=== PATIENT | male | born 2000 | race Caucasian/White ===

== ENCOUNTER 2024-01-30 10:13 | Inpatient (IN) | payer OTHER, SELFPAY ==
[2024-01-30] VITALS (10 sets, daily range): BP systolic 121–155; BP diastolic 70–93; BMI 24.8; BMI 25.1
[2024-01-30 04:03] LABS: % Basophils 0.6 % (0-2); % Eosinophils 0.8 % (0-6); % Immature Granulocytes 0.2 % (0-0.5); % Lymphocytes 20.6 % (20.5-51.1); % Neutrophils 73.8 % (42.2-75.2); Absolute Basophils 0.1 10^3/uL (0-0.2); Absolute Eosinophils 0.1 10^3/uL (0-0.7); Absolute Lymphocytes 2.3 10^3/uL (1.2-3.4); Absolute Monocytes 0.4 10^3/uL (0.1-0.6); Hematocrit 45.1 % (39.0-52.0); Hemoglobin 16.1 g/dL (13.0-18.0); Mean Corp Hgb Conc. 35.7 g/dL (33.0-37.0); Mean Corpuscular Hgb 29.3 pg (27.0-31.0); Mean Platelet Volume 9.4 fL (7.4-10.4); Nucleated Red Blood Cells % 0 % (-); Platelet Count 380 10^3/uL (130-400); White Blood Cell Count 10.9 10^3/uL (4.8-10.8)
[2024-01-30] MEDS: ZOFRAN 4 MG IV (04:14)
[2024-01-30 04:27] LABS: ALT (SGPT) 75 U/L (0-50); AST (SGOT) 85 U/L (17-59); Albumin 5.4 g/dl (3.5-5.0); Alkaline Phosphatase 100 U/L (38-126); Blood Urea Nitrogen 11 mg/dl (9-20); Calcium 10.4 mg/dl (8.4-10.2); Carbon Dioxide 21 mmol/L (22-30); Chloride 105 mmol/L (98-107); Glucose 112 mg/dl (70-99); Lipase 88 U/L (23-300); Potassium 3.5 mmol/L (3.5-5.1); Sodium 141 mmol/L (135-145); Total Protein 8.8 g/dl (6.3-8.2); eGFR > 60.00
[2024-01-30] MEDS: NSS 1000 IV ×2 (05:40→06:26)
[2024-01-30] MEDS: DILAUDID 1 MG IV ×3 (05:41→20:21)
[2024-01-30] MEDS: ATIVAN 1 MG IV ×5 (05:45→23:22)
--- NOTE | 2024-01-30 07:07 | ED TECH ---
US Tech called this assistant community manager and said that the pt was in too much pain to continue US. Pt taken back to room. Nurse and provider alerted.
--- NOTE | 2024-01-30 07:14 | ED.GENMED ---
History of Present Illness
General
Chief Complaint: Abdominal Symptoms
Source: patient, family (mother) and previous hospital records (Hospitalization September 2023 for very similar complaint. Previous ED visit for similar complaint January 2023.)
Exam Limitations: none
Time Seen by Provider: 01/30/24 05:01
Nursing documentation reviewed up to this point in time: agreed with
Travel History
Have you had any contact with someone who has COVID-19?: No
Do you have any symptoms of coronavirus? Fever > 100 degrees, chills, cough, shortness of breath, sore throat, loss of taste or smell, muscle aches, or headache?: No
History of Present Illness
History of Present Illness:
This is a 23-year-old male who has history of chronic abdominal pain, chronic nausea and vomiting with multiple, repeated/extensive GI evaluations by various gastroenterologists throughout the area requiring previous hospitalizations due to
exacerbation of his chronic abdominal pain and intractable nausea and vomiting most recently September 2023.
He has had chronic abdominal pain after a snowboarding accident with abdominal wall muscle tear 2018.
Maintained on methadone 10 mg 4 times daily as well as alprazolam 1 mg 4 times daily. Also maintained on marijuana and there has been concern for opioid withdrawal versus cannabis hyperemesis syndrome versus gastroparesis, cyclic vomiting syndrome.
He does admit to near daily vomiting but generally tolerable with twice daily Zofran 8 mg.
Nausea, vomiting and generalized abdominal pain worsened this evening and is now intolerable.
He denies diarrhea nor constipation. Denies fever but admits to intermittent chills and diaphoresis which are common entities with exacerbation of his pain and vomiting. He often times vomits flecks of blood but denies jacob hematemesis nor
hematochezia.
Very similar presentation September 2023 where he was hospitalized for several days, symptoms improved with IV fluids, pain medication.
According to patient and mother, he has had no recurrent severe episodes such as this since September.
Past History
Past History
ED Past Medical History: Other (Kidney stones, chronic abdominal pain, chronic N/V)
ED Past Surgical History: Other (ENT)
Social History
Tobacco: Non-smoker
Alcohol: Occasional
Drug: Marijuana
Personal: Single
Living: with family
Employment: Not employed
Family History
Family History: Other (Noncontributory)
Phy Exam
Physical Exam
Physical Exam:
GENERAL: 23-year-old male appears his stated age, awake and alert, appears in moderate distress, somewhat tremulous, diaphoretic, intermittently spitting saliva into an emesis basin with intermittent brief retching. Mother is at bedside.
EYE: anicteric
NECK: Supple, nontender, no meningismus, no significant adenopathy.
ENT: oral mucosa is moist. No rhinorrhea.
CARDIAC: Regular rate and rhythm. no murmur.
LUNGS: Clear breath sounds bilaterally, no acute respiratory distress, no wheezes/rales/rhonchi
ABDOMEN: Soft, nondistended, moderate generalized tenderness to palpation without rebound or guarding nor rigidity, no cvat. normoactive BS.
NEUROLOGICAL: Alert and oriented x3, no focal neuro deficits.
SKIN: Warm and mildly diaphoretic, minimally pale in color, skin intact. No rash.
MUSCULOSKELETAL: No C/C/E. peripheral pulses are full and equal b/l. No palpable tenderness.
PSYCH: Moderately anxious, tremulous.
Course
Orders/Labs/Results
Orders:
Orders
01/30/24 03:58
Complete Blood Count/With Diff Urgent
Comprehensive Metabolic Panel Urgent
Lipase Urgent
01/30/24 04:06
Urine Drug Abuse Screen Urgent
01/30/24 04:07
Urinalysis Reflex To Culture Urgent
01/30/24 04:11
Ondansetron Injectable [Zofran] 4 mg .ROUTE .STK-MED ONE
01/30/24 04:12
Ondansetron Injectable [Zofran] 4 mg IV NOW STA
01/30/24 05:14
0.9% Sodium Chloride 1000 ml [Nss] 1,000 ml IV BOLUS
HYDROmorphone [Dilaudid] 1 mg IV NOW STA
01/30/24 05:17
Lorazepam [Ativan] 1 mg IV NOW STA
US Abdomen Complete/Upper Urgent
Comment:
Reason For Exam: abd pain, N/V, elevated LFT's
01/30/24 06:20
0.9% Sodium Chloride 1000 ml [Nss] 1,000 ml IV BOLUS
Abnormal Lab Results
01/30/24
03:58
WBC 10.9 H 10^3/uL
(4.8-10.8)
Absolute Neuts (auto) 8.0 H 10^3/uL
(1.4-6.5)
Carbon Dioxide 21 L mmol/L
(22-30)
Glucose 112 H mg/dl
(70-99)
Calcium 10.4 H mg/dl
(8.4-10.2)
Total Bilirubin 2.0 H mg/dl
(0.2-1.3)
AST 85 H U/L
(17-59)
ALT 75 H U/L
(0-50)
Total Protein 8.8 H g/dl
(6.3-8.2)
Albumin 5.4 H g/dl
(3.5-5.0)
01/30/24 03:58
01/30/24 03:58
Vital Signs
Initial and Last Documented VS:
Initial Vital Signs
Pulse Ox
99
01/30/24 03:36
Last Documented Vital Signs
Pulse Resp BP Pulse Ox
54 16 142/92 100
01/30/24 06:30 01/30/24 06:30 01/30/24 06:00 01/30/24 06:30
MDM/Problems Addressed
Differential Diagnosis Includes:
Patient with history of chronic abdominal pain, chronic nausea presents with exacerbation of chronic pain and exacerbation of nausea and vomiting.
Maintained on methadone, Ativan and he is quite anxious, diaphoretic, concerning for opioid versus benzodiazepine withdrawal symptomatology.
Other consideration is cannabis hyperemesis syndrome, cyclic vomiting.
No prior abdominal surgeries and multiple previous imaging has been unremarkable.
He is noted to have mildly elevated LFTs which is a new finding thus will check abdominal ultrasound assess for potential cholecystitis however most of his pain is mid to lower abdomen�chronic in nature.
Will continue IV fluids and give an IV dose of Dilaudid and Ativan for potential withdrawal issues.
Chronic conditions affecting care: Psychiatric illness and Other (Chronic abdominal pain-narcotic dependent)
Acute Exacerbation and/or Progression of Chronic Illness: Psychiatric illness and Other (Exacerbation of chronic abdominal pain)
*Pulse Oximetry
Patient hypoxic: no
*Critical Care Note
Total Time (30-74mins, 75-104mins- exclusive of procedures): Not Applicable
Update Note
Update Note:
01/30/2024 0721 AM
Patient had moderate improvement in pain and nausea after an IV dose of Ativan and Dilaudid along with IV fluids.
Labs are remarkable for mildly elevated creatinine of 1.3, mildly elevated LFTs with AST of 85, ALT of 75 which are new compared to previous. Mildly elevated bilirubin of 2.0 with previous sporadic bilirubin elevations noted in the past. Mildly
elevated LFTs however is a new finding compared to previous. CBC is unremarkable.
Due to elevated LFTs concern for biliary colic thus will check abdominal ultrasound.
Unfortunately, patient has returned from ultrasound prior to completion of study due to return of pain and nausea.
Will remedicate for pain and nausea and plan to complete ultrasound study.
Due to persistent pain, intractable nausea and vomiting patient will require acute hospitalization for pain control, continued IV fluids and continue antiemetics.
ED Attending Note
-
Portions of this chart may have been created with voice recognition software.� Occasional wrong word or��sound alike� substitutions may have occurred due to the inherent limitations of voice recognition software.
Discharge Plan
Departure
Patient Disposition: Admit
Date of Disposition: 01/30/24
Time of Disposition: 07:21
Admit to: Med/Surg
Admit to doctor: Maynor
Presentation/result/management discussed w/ accepting MD/DO: Hospitalist
Discharge Problem:
Intractable abdominal pain, Intractable vomiting, LFT elevation, exacerbation of chronic pain syndrome
Prescriptions:
No Action
alprazolam 1 mg Tablet
1 mg PO QID
Rx Instructions:
09/15/2023, patient filled this medication on 08/29/2023 for 120 tablets according to PDMP.
tizanidine 4 mg Tablet
4 mg PO BID PRN (Reason: muscle spasm)
methadone 10 mg Tablet
10 mg PO QID
Rx Instructions:
09/15/2023, patient filled this medication on 08/29/2023 for 120 tablets according to PDMP.
ondansetron 8 mg Tablet,Disintegrating
8 mg PO BID
pantoprazole 40 mg Tablet,Delayed Release (Dr/Ec)
40 mg PO DAILY
lubiprostone 24 mcg Capsule
24 mcg PO BID
Patient Comments:
09/15/2023, patient states that they take BID with meals.
Belsomra 20 mg Tablet
20 mg PO HS
Rx Instructions:
09/15/2023, patient filled this medication on 09/04/2023 for 30 tablets according to PDMP.
Referrals:
Emerson Gramajo MD [Family Provider] -
Interventions
Interventions:
*Risk Screen - Suicide Last Done: 01/30/24 03:36
*General Assessment Last Done: 01/30/24 03:36
*Neglect/Abuse Screening Last Done: 01/30/24 03:36
ED- Fall Risk Assessment Last Done: 01/30/24 03:48
*ED COVID-19 Vaccine History Last Done: 01/30/24 03:48
OZ-Oxdplh-Yjbnpcugnm Assessment Last Done: 01/30/24 03:48
[2024-01-30] MEDS: DILAUDID 0.5 MG IV (07:23)
--- NOTE | 2024-01-30 08:34 | HPS.HSE ---
Addendum entered and electronically signed by Dasia Mcguire MD 01/30/24 09:12:
allergy to promethazine; mother states he has tolerated compazine in past
Original Note:
Family Physician
-
Family Physician: Emerson Gramajo
Chief Complaint
-
intractable nausea and vomiting
History of Present Illness
Mr. Jose Alejandro is a 23 yo man with h chronic abdominal pain and nausea status post extensive GI evaluations, opioid dependence on methadone and Alprazolam presents to the ER with exacerbation of pain and frequent vomiting.
Chronic abdominal pain began after a snowboarding accident with abdominal wall muscle tear 2018. Patient has had extensive work-up here and at [place], [facility], [facility]. s/p EGD, colo, flex sig, capsule endoscopies, CT, motility work-up. He
has received lidocaine and steroid injection for possible nerve pain in abdominal wall without improvement. He was on chronic narcotics, weaned off but had AE from gabapentin and then placed on methadone. Marijuana stopped for 8 months without
relief of symptoms so he resumed.
At current baseline he vomits every day but nausea relieved with zofran and pain controlled with Methadone. Last night his mom states he was rolling on ground and trying to crack his back. He then had significant exacerbation of pain, vomiting.
He reports diarrhea at home, not here.
Medical History
Past Medical History
Past Medical History: Reports Other
Additional Past Medical History:
Kidney stones
C. difficile
Past Surgical History: Reports Other
Additional Past Surgical History:
Back surgery
Social History
Tobacco: Vaping (Legal marijuana)
Alcohol: None
Drug: None
Personal: Single
Living: With Family
Employment: Employed (Self-employed)
Family History
Family History: Not pertinent
Allergies / Home Medications
Allergies reflects when Allergies were last updated in [employer].
Home Medications with original date entered in [employer]
Allergy/Medication List:
Allergies
Allergy/AdvReac Type Severity Reaction Status Date / Time
amoxicillin Allergy anxiety Verified 02/01/23 11:58
like
wanting to
jump out
of skin
promethazine [From Phenergan] Allergy anxiety, Verified 02/01/23 11:58
like
wanting to
jump out
of skin
Home Medications
alprazolam 1 mg tablet 1 mg PO QID Mental Health/Anxiety 09/15/23
lubiprostone 24 mcg capsule 24 mcg PO BID Constipation 09/15/23
methadone 10 mg tablet 10 mg PO QID chronic pain 09/15/23
ondansetron 8 mg disintegrating tablet 8 mg PO BID nausea 09/15/23
pantoprazole 40 mg tablet,delayed release 40 mg PO DAILY Gastrointestinal Issue 09/15/23
suvorexant 20 mg tablet (Belsomra) 20 mg PO HS insomnia 09/15/23
tizanidine 4 mg tablet 4 mg PO BID PRN muscle spasm 09/15/23
Review of Systems
-
History Source: Patient
A 12 point ROS was completed and negative except as noted: Yes
Physical Exam
Vital Signs
Vital Signs
Pulse Resp BP Pulse Ox
54 16 142/92 100
01/30/24 06:30 01/30/24 06:30 01/30/24 06:00 01/30/24 06:30
Physical Exam
General: Other (in position, appears uncomfortable )
HEENT: PERRLA
Respiratory: Clear; No Wheezes
Cardiac: S1/S2 and Regular Rhythm
GI: Other (tender mid-abdomen, no rebound or guarding )
Skin: Warm and Dry; No Rash
Neuro: AO x 3
Psych: Other (flat affect )
Laboratory Results
-
01/30/24 03:58
01/30/24 03:58
Laboratory Results
Total Bilirubin 2.0 mg/dl (0.2-1.3) H 01/30/24 03:58
AST 85 U/L (17-59) H 01/30/24 03:58
ALT 75 U/L (0-50) H 01/30/24 03:58
Alkaline Phosphatase 100 U/L (38-126) 01/30/24 03:58
Lipase 88 U/L (23-300) 01/30/24 03:58
Data Reviewed
-
Diagnostic Radiology: Report Reviewed by me
Lab Data: Labs Reviewed by me
Impression/Plan
-
Mr. Jose Alejandro is a 23 yo man with h chronic abdominal pain and nausea status post extensive GI evaluations, opioid dependence on methadone and Alprazolam presents to the ER with exacerbation of pain and frequent vomiting.
Triage VS: P 54, RR 156, BP 142/92, SpO2 100%
Labs: WBC 10.9, Hg 16.1, PLT 380, Na 141, K+ 3.5, BUn 11, Cr 1.3, Glucose 112, Ca 10.4, T. bili 2.0, AST 85, ALT 75
ABDOMEN US
IMPRESSION:
Limited exam in the midline due to overlying bowel gas.
No acute process identified.
MAR IV dilaudid, IVF, zofran
Chronic Abdominal Pain
Acute Exacerbation Abdominal pain
Nausea/vomiting
Diarrhea reported at home
Opiate Dependence
-patient has had extensive work-up here and at [place], [facility], [facility]. s/p EGD, colo, flex sig, capsule endoscopies, CT, motility work-up. He has received lidocaine and steroid injection for possible nerve pain in abdominal wall without
improvement. He was on chronic narcotics, weaned off but had AE from gabapentin and then placed on methadone. Marijuana stopped for 8 months without relief of symptoms so he resumed
-admit to tele
-s/p zofran, IV dilaudid, IVF in ER, remains uncomfortable
-IV Compazine now
-D5 LR @ 100
-IV zofran 1st line; compazine 2nd line for nausea
-IV dilaudid 1mg q 4H PRN
-GI consult
-add on Mag, replete K as it is 3.5 and patient with minimal PO intake; GI loss
-F/U UA and UTox
-with diarrhea reported at home will add on stool culture, C. Diff, norovirus
Anxiety, Alprazolam dependence
-with vomiting will change to IV Ativan instead of XanaX
Transaminitis
-likely 2/2 GI upset, US without acute abnormality
-will trend
GERD
-change Protonix to IV
DVT PPx lovenox subQ
FULL CODE
--- NOTE | 2024-01-30 08:48 | EDRN ---
Pt requested ice chips which were okayed by Dr. Mcguire. Pt c/o nausea. Dr. Mcguire in room w/pt at this time. Pt states he has been having diarrhea and it has been bloody so Dr. Mcguire wishes a stool specimen.
[2024-01-30] MEDS: COMPAZINE 10 MG IV (10:45)
--- NOTE | 2024-01-30 11:03 | EDRN ---
Nikita 10:40 this RN clarified order for 40 meq KCl rider over 4 hours as potassium is 3.5. Dr. Mcguire said w/ pt's low normal potassium and being NPO she wanted the potassium infused.
[2024-01-30] MEDS: KCL 270 MEQ IV (11:08)
--- NOTE | 2024-01-30 11:10 | EDRN ---
Pt states abd pain is 8+/10 at this time and nausea at 100% upon arrival is now at 80%. Compazine 10 mg IVPB just completed and potassium just started to infuse at this time 40 meq in 270 of NSS at 67.5 mL per hour via IV pump.
[2024-01-30] MEDS: D5LR 1000 IV ×2 (12:00→22:06)
--- NOTE | 2024-01-30 12:22 | W.PN.UPDATE ---
Update Note
Progress Note Update
QTc prolonged. will change anti-nausea meds to Tigan PRN
[2024-01-30] MEDS: PROTONIX IV 40 MG IV (12:28)
[2024-01-30] MEDS: FLUSH (NSS) 2 FLUSH IV ×2 (12:35→18:08)
--- NOTE | 2024-01-30 13:14 | CON.GI ---
Consultation
-
Date/Time Consultation Requested: 01/30/2024
Date/Time Consultation Performed: 01/30/2024
Requesting Provider: hospitalist
Performing Provider: Xu COLE
Reason for Consultation: Chronic abdominal pain/nausea/vomiting
Medical History
Chief Complaint / HPI
Chief Complaint: Abdominal pain/nausea/vomiting
History of Present Illness:
23-year-old male with history of chronic abdominal pain started after snowboarding accident in 2019 who underwent extensive GI workup in tertiary centers [facility] including EGD/colonoscopy/capsule endoscopy/motility study currently
following up with pain management on methadone is here complaining of exacerbation of his abdominal pain with frequent nausea/vomiting. Prior to this excruciating pain mom stated that he was rolling on the ground and tried to crack his back. Was
seen by GI team multiple times in the past. last seen 09/2023. He is also seen pain management he sees [facility] pain management and has received lidocaine and a steroid injection for possible nerve pain in his abdominal wall without much
improvement of symptoms he was on chronic narcotics he was weaned off the narcotics in 2021 and was started on gabapentin he had side effects from the gabapentin so he then was put on methadone.� He also uses medical marijuana for nausea he says
because of the concern of possible cannabinoid hyperemesis he stopped marijuana for 8 months but did not have much improvement of symptoms. He was using lubiprostone 24 mcg twice daily for constipation given by cnc operator at [facility].
(Reported abdominal cramping with stimulant laxative or MiraLAX in the past)
Past Medical History
Past Medical History: Other (Kidney stones C. difficile)
Past Surgical History: Other (back surgery)
Social History
Tobacco: Vaping (Legal marijuana)
Alcohol: None
Drug: None
Living: With Family
Allergies / Home Medications
Allergy/AdvReac Type Severity Reaction Status Date / Time
amoxicillin Allergy anxiety Verified 02/01/23 11:58
like
wanting to
jump out
of skin
promethazine [From Phenergan] Allergy anxiety, Verified 02/01/23 11:58
like
wanting to
jump out
of skin
Medication Instructions Recorded
alprazolam 1 mg tablet 1 mg PO QID Mental Health/Anxiety 09/15/23
lubiprostone 24 mcg capsule 24 mcg PO BID Constipation 09/15/23
methadone 10 mg tablet 10 mg PO QID chronic pain 09/15/23
ondansetron 8 mg disintegrating 8 mg PO BID nausea 09/15/23
tablet
pantoprazole 40 mg tablet,delayed 40 mg PO DAILY Gastrointestinal 09/15/23
release Issue
suvorexant 20 mg tablet (Belsomra) 20 mg PO HS insomnia 09/15/23
tizanidine 4 mg tablet 4 mg PO BID PRN muscle spasm 09/15/23
Review of Systems
-
All other systems: A 12 pt ROS was Negative except as stated above in HPI
Vital Signs
Temp Pulse Resp BP Pulse Ox
98.5 F 56 16 147/93 100
01/30/24 11:50 01/30/24 11:50 01/30/24 11:50 01/30/24 11:50 01/30/24 11:50
Physical Exam
Exam
General: Well Developed
Respiratory: Clear
Cardiac: S1/S2
GI: Soft, Non Tender (Left lower quadrant tenderness) and Non Distended
Neuro: AO x 3
Results
WBC 10.9 10^3/uL (4.8-10.8) H 01/30/24 03:58
Hgb 16.1 g/dL (13.0-18.0) 01/30/24 03:58
Hct 45.1 % (39.0-52.0) 01/30/24 03:58
MCV 82.0 fL (80.0-94.0) 01/30/24 03:58
Plt Count 380 10^3/uL (130-400) 01/30/24 03:58
Absolute Neuts (auto) 8.0 10^3/uL (1.4-6.5) H 01/30/24 03:58
Sodium 141 mmol/L (135-145) 01/30/24 03:58
Potassium 3.5 mmol/L (3.5-5.1) 01/30/24 03:58
Chloride 105 mmol/L (98-107) 01/30/24 03:58
Carbon Dioxide 21 mmol/L (22-30) L 01/30/24 03:58
BUN 11 mg/dl (9-20) 01/30/24 03:58
Creatinine 1.3 mg/dL (0.7-1.3) 01/30/24 03:58
Calcium 10.4 mg/dl (8.4-10.2) H 01/30/24 03:58
Total Bilirubin 2.0 mg/dl (0.2-1.3) H 01/30/24 03:58
AST 85 U/L (17-59) H 01/30/24 03:58
ALT 75 U/L (0-50) H 01/30/24 03:58
Alkaline Phosphatase 100 U/L (38-126) 01/30/24 03:58
Lipase 88 U/L (23-300) 01/30/24 03:58
Diagnostic Image Results:
Prior GI Procedures:
EGD:� 06/08/20 Dr. Arriola
Impression:� � � � � - Normal esophagus.
�� � � � � � � � � � - Gastric stenosis was found at the pylorus. Dilated.
�� � � � � � � � � � - Normal examined duodenum.
�� � � � � � � � � � - No specimens collected.
Colonoscopy:� January [address] [facility] with Dr. [facility] neg per patient's mom
colonoscopy 07/19/20 Dr. Garnett
Impression:� � � � � � - Congested, erythematous and granular mucosa in the
�� � � � � � � � � � � distal rectum. Biopsied.
�� � � � � � � � � � � - Nodular ileal mucosa - worse at the ICV and terminal
�� � � � � � � � � � � ileum. Biopsied.
�� � � � � � � � � � � Sent studies to rule out TB, amyloidosis, eosinophils,
�� � � � � � � � � � � IBD.
�� � � � � � � � � � � - The more proximal area examined was normal. Biopsied.
�� � � � � � � � � � � - Biopsies were taken with a cold forceps from the
�� � � � � � � � � � � entire colon for evaluation of microscopic colitis.
�� � � � � � � � � � � - The colon examination was otherwise endoscopically
�� � � � � � � � � � � normal.
PATHOLOGY : Was negative for microscopic colitis and ileal biopsies were negative for Crohn's no evidence of granulomas or inflammation seen. also negative for Amyloid.
Assessment / Plan
-
23-year-old male with history of chronic abdominal pain started after snowboarding accident in 2019 who underwent extensive GI workup in tertiary centers [place], [facility] including EGD/colonoscopy/capsule endoscopy/motility study currently
following up with pain management on methadone is here complaining of exacerbation of his abdominal pain with frequent nausea/vomiting. Prior to this excruciating pain mom stated that he was rolling on the ground and tried to crack his back.
-- Chronic abdominal pain with nausea and vomiting -extensive GI workup in the past. Likely multifactorial -likely neuropathic versus referred pain versus chronic opioid use etc
-- Opioid dependence
-- Back pain/multiple disc herniation
-- Elevated liver test.Ultrasound abdomen 01/30/2024�no acute process identified
plan
Multiple hospital admissions in the past and extensive GI workup at tertiary center with no clear etiology identified . Recommend symptomatic management with IV hydration, antiemetics and pain management as per medical team. Okay to start on clear
liquid diet and advance diet as tolerated if nausea settles with antiemetics. At this point unfortunately nothing more to add from GI standpoint other than supportive care.
Trend LFT
If diarrhea persist will recommend stool studies for infection
Will advise follow-up with GI as outpatient at [facility]
Total Time Spent with Patient (in minutes): 55
-
-
Thank you for consultation and allowing me to participate in the patient's care. Please call the bonding machine setter GI physician during the after hours with any questions or concerns.
[2024-01-30] MEDS: LOVENOX 40 MG SC (18:09)
[2024-01-30] MEDS: NSS (PRESERVATIVE FREE) 0.5 ML IV ×2 (18:19→23:22)
[2024-01-30] MEDS: AMITIZA 24 MCG PO (20:09)
[2024-01-30] MEDS: TIGAN 200 MG IM (20:19)
[2024-01-30 22:30] LABS: Urine Albumin Negative (Neg - Trace); Urine Bilirubin Negative (Negative); Urine Character Clear (Clear); Urine Color Yellow; Urine Glucose Negative (Negative); Urine Ketone Negative (Negative); Urine Leukocyte Negative (Negative); Urine Nitrite Negative (Negative); Urine Occult Blood Negative (Negative); Urine Specific Gravity 1.005 (<1.030); Urine Urobilinogen Negative (Neg - 1+)
[2024-01-31 03:18] VITALS: BP 118/61
[2024-01-31] MEDS: ATIVAN 1 MG IV ×4 (05:29→23:21)
[2024-01-31] MEDS: NSS (PRESERVATIVE FREE) 0.5 ML IV ×4 (05:30→23:21)
[2024-01-31] MEDS: DILAUDID 1 MG IV ×4 (05:49→20:11)
[2024-01-31] MEDS: TIGAN 200 MG IM ×2 (05:59→18:02)
[2024-01-31 07:40] VITALS: BP 132/97
[2024-01-31 07:45] LABS: % Basophils 0.3 % (0-2); % Eosinophils 0.5 % (0-6); % Immature Granulocytes 0.2 % (0-0.5); % Lymphocytes 36.1 % (20.5-51.1); % Monocytes 6.9 % (1.7-9.3); Absolute Lymphocytes 2.3 10^3/uL (1.2-3.4); Absolute Monocytes 0.4 10^3/uL (0.1-0.6); Absolute Neutrophils 3.6 10^3/uL (1.4-6.5); Hematocrit 36.9 % (39.0-52.0); Mean Corp Hgb Conc. 34.7 g/dL (33.0-37.0); Mean Corpuscular Hgb 29.4 pg (27.0-31.0); Mean Corpuscular Volume 84.6 fL (80.0-94.0); Mean Platelet Volume 9.7 fL (7.4-10.4); Nucleated Red Blood Cells % 0 % (-); Platelet Count 258 10^3/uL (130-400); Red Blood Cell Count 4.36 10^6/uL (4.70-6.10); Red Cell Dist. Width 13.2 % (11.5-14.5); White Blood Cell Count 6.4 10^3/uL (4.8-10.8)
--- NOTE | 2024-01-31 08:02 | W.PN.HOSP.TC ---
Today's Communication/Plan
-
advance to clears
symptom management with IV meds today and IM Tigan
repeat EKG tomorrow to monitor QTc
Assessment / Plan
Assessment / Plan
Mr. Jose Alejandro is a 23 yo man with h chronic abdominal pain and nausea status post extensive GI evaluations, opioid dependence on methadone and Alprazolam presents to the ER with exacerbation of pain and frequent vomiting.�
ABDOMEN US
IMPRESSION:
Limited exam in the midline due to overlying bowel gas.
No acute process identified.
Chronic Abdominal Pain
Acute Exacerbation Abdominal pain
Nausea/vomiting
Diarrhea reported at home
Opiate Dependence
-patient has had extensive work-up here and at [place], [facility], [facility].� s/p EGD, colo, flex sig, capsule endoscopies, CT, motility work-up.� He has received lidocaine and steroid injection for possible nerve pain in abdominal wall without
improvement.� He was on chronic narcotics, weaned off but had AE from gabapentin and then placed on methadone.� Nausea was OK off pain meds. Marijuana stopped for 8 months without relief of symptoms so he resumed
-F/U labs, likely OK for transfer to [facility] ]
-appreciate GI consult
-advance to clears today
-will continue IV med supportive care for today until eating regular diet
-IM Tigan given prolonged QTc (repeat EKG ordered for tomorrow AM to monitor QTc)
-IV dilaudid PRN
-with diarrhea reported at home will add on stool culture, C. Diff, norovirus
Anxiety, Alprazolam dependence
-with vomiting will change to IV Ativan instead of XanaX
discussion had with patient 01/30. He reports being frustrated with the need to be on these medications. He works with CBT and has been trying to adjust pain regimen for 4 years. He has appt with spine surgeon upcoming next month. After
extensive GI work up belief is that back pain and referred pain main etiology of symptoms. It seems the pain meds then result in nausea.
Transaminitis
-likely 2/2 GI upset, US without acute abnormality
-will trend
GERD
-change Protonix to IV
DVT PPx lovenox subQ
FULL CODE
Anticipated Discharge: 24 - 48 hours
Subjective/Interval History
-
Date of Service: January 31, 2024
feeling better
more conversant today
states he wants to get off meds
Objective Data
-
Labs:
Laboratory Results
01/31/24
07:23
WBC Pending
Hgb Pending
Hct Pending
Plt Count Pending
Sodium Pending
Potassium Pending
Chloride Pending
Carbon Dioxide Pending
BUN Pending
Creatinine Pending
Glucose Pending
Calcium Pending
Total Bilirubin Pending
AST Pending
ALT Pending
Alkaline Phosphatase Pending
Vital Signs:
Vital Signs
Temp Pulse Resp BP Pulse Ox
99.0 F 54 16 118/61 98
01/31/24 03:18 01/31/24 03:18 01/31/24 03:18 01/31/24 03:18 01/31/24 03:18
I&O
01/30/24 01/31/24 02/01/24
06:59 06:59 06:59
Intake Total 0 / 2120
Output Total 1425 / 1425
Balance 695 / 695
Review of Systems
-
History Source: Patient
All other systems: Reviewed and negative
Physical Exam
-
General: Other (mildly tremulous, anxious, awake and alert, conversant )
HEENT: PERRLA
Respiratory: Clear to Auscultation; Negative Wheezes
Cardiac: Regular Rhythm and S1/S2
GI: Other (mildly tender mid-epigastric region, no rebound or guarding )
Musculoskeletal: No Edema
Skin: Warm and Dry; Negative Rash
Neuro: AO x 3
Psych: Calm
Data Reviewed
-
Diagnostic Radiology: Report Reviewed by me
Labs: Labs Reviewed by me
[2024-01-31 08:18] LABS: Hemoglobin 12.8 g/dL (13.0-18.0)
[2024-01-31] MEDS: D5LR 1000 IV ×2 (08:21→18:02)
[2024-01-31] MEDS: AMITIZA 24 MCG PO ×2 (08:28→20:11)
[2024-01-31] MEDS: PROTONIX IV 40 MG IV (08:33)
[2024-01-31] MEDS: FLUSH (NSS) 2 FLUSH IV ×3 (08:35→12:26)
[2024-01-31] MEDS: NSS (PRESERVATIVE FREE) 10 ML IV (08:35)
[2024-01-31 08:36] LABS: ALT (SGPT) 63 U/L (0-50); AST (SGOT) 60 U/L (17-59); Albumin 4.1 g/dl (3.5-5.0); Alkaline Phosphatase 69 U/L (38-126); Blood Urea Nitrogen 3 mg/dl (9-20); Carbon Dioxide 23 mmol/L (22-30); Chloride 110 mmol/L (98-107); Estimated Creatinine Clearance > 125 ml/min; Glucose 101 mg/dl (70-99); Magnesium 1.6 mg/dl (1.6-2.3); Potassium 3.4 mmol/L (3.5-5.1); Sodium 140 mmol/L (135-145); Total Bilirubin 1.8 mg/dl (0.2-1.3); Total Protein 6.7 g/dl (6.3-8.2); eGFR > 60.00
[2024-01-31 10:07] LABS: Benzodiazepines Positive (Negative); Marijuana Positive (Negative); Methadone Positive (Negative); Opiates Positive (Negative)
[2024-01-31 10:08] LABS: Amphetamines Negative (Negative); Barbiturates Negative (Negative); Buprenorphine Negative (Negative); Cocaine Negative (Negative); Methamphetamines Negative (Negative); Phencyclidine Negative (Negative); Tricyclic Antidepressants Negative (Negative)
[2024-01-31 10:29] LABS: Fentanyl, Urine Negative (Negative)
[2024-01-31 11:06] LABS: Direct Bilirubin 0.2 mg/dl (0.0-0.4)
--- NOTE | 2024-01-31 11:34 | W.PN.GI.CBS2 ---
Today's Communication / Plan
-
Continue symptomatic management
Assessment / Plan
-
23-year-old male with history of chronic abdominal pain started after snowboarding accident in 2019 who underwent extensive GI workup in tertiary centers [place], [facility] including EGD/colonoscopy/capsule endoscopy/motility study currently
following up with pain management on methadone is here complaining of exacerbation of his abdominal pain with frequent nausea/vomiting. Prior to this excruciating pain mom stated that he was rolling on the ground and tried to crack his back.
-- Chronic abdominal pain with nausea and vomiting -extensive GI workup in the past. Likely multifactorial -likely neuropathic versus referred pain versus chronic opioid use etc
-- Opioid dependence
-- Back pain/multiple disc herniation
-- Elevated liver test.trending down. Direct bilirubin is normal .ultrasound abdomen 01/30/2024�no acute process identified
plan
Multiple hospital admissions in the past and extensive GI workup at tertiary center with no clear GI etiology identified . Recommend symptomatic management with IV hydration, antiemetics and pain management as per medical team. Okay to start on
clear liquid diet and advance diet as tolerated if nausea settles with antiemetics. At this point unfortunately nothing more to add from GI standpoint other than supportive care.
Pain management consultation can be beneficial
Trend LFT
If diarrhea persist will recommend stool studies for infection
Will advise follow-up with GI as outpatient at [facility]
Will sign off. Please call us back if any questions
Total Time Spent with Patient (in minutes): 35
Subjective
Subjective
Date of Service: January 31, 2024
Continues to have intermittent abdominal pain associated with nausea. [place] better earlier. Awaiting to try clear liquid today
Objective
Data Reviewed
Laboratory Data:
Laboratory Results
01/31/24 07:23
01/31/24 07:23
Laboratory Results
Magnesium 1.6 mg/dl (1.6-2.3) 01/31/24 07:23
Total Bilirubin 1.8 mg/dl (0.2-1.3) H 01/31/24 07:23
AST 60 U/L (17-59) H 01/31/24 07:23
ALT 63 U/L (0-50) H 01/31/24 07:23
Alkaline Phosphatase 69 U/L (38-126) 01/31/24 07:23
Lipase 88 U/L (23-300) 01/30/24 03:58
Vital Signs and I&O:
Vital Signs
Temp Pulse Resp BP Pulse Ox
99.1 F 69 16 132/97 99
01/31/24 07:40 01/31/24 07:40 01/31/24 07:40 01/31/24 07:40 01/31/24 07:40
I&O
01/30/24 01/31/24 02/01/24
06:59 06:59 06:59
Intake Total 2119 / 2119
Output Total 1425 / 1425
Balance 695 / 695
Physical Exam
Physical Exam
GI: Soft and Tender
[2024-01-31] MEDS: KCL 270 MEQ IV (12:01)
--- NOTE | 2024-01-31 12:41 | CM ---
Reviewed the chart notes and spoke with the patient at the bedside. The patient resides with his parents in a two story home. The patient reports no DME/VN/SNF in the past. The patient's pharmacy of choice is the [facility] Vladimir Kramer CM
continues to be available to patient/family and is monitoring medical plan for needs at discharge.
Plan: Discharge to home when medically stable. No needs anticipated.
--- NOTE | 2024-01-31 13:43 | PTCARENOTE ---
PT's family request a psych consult for their son. The family told me that he had been on meds before but it made him too drowsy and did not like being on them. He is undergoing cognitive behavioral therapy, not sure where. Also they stated years
ago he tried to take his life but he doesn't want anyone to know this even a psych doctor. The parenets fear that if the doctor starts talking about psych stuff he will refuse to see them. I recommended to talk about his lack of sleep and
difficulty. Pt possibly uses pain meds, anxiety meds to help with all of this. He tries to keep busy and did some day trading. Mother states he is very smart. Dad mentioned that he lies in bed alot. They don't know what to do for him and look
like they fear something will happen if he is not taken care of. Recommendations for a psych consult to discuss lack of sleep and get medication for that and get off off other meds. Pt does see a pain specialist too. Will cont to monitor pts pain
and support his emotions
[2024-01-31 15:25] VITALS: BP 143/90
[2024-01-31] MEDS: MAGNESIUM SULFATE 50 IV (16:31)
[2024-01-31] MEDS: LOVENOX 40 MG SC (17:52)
--- NOTE | 2024-01-31 19:25 | CON.MD ---
Consultation - Medical
-
Pt admitted for chronic nausea/vomiting/abdominal pain - has been seen at various facilities with no clear cause found. Psychiatry consulted due to parents raising concerns that he is depressed.
Pt admits to depressed mood but says this is in context of frustration with his current condition. Expresses frustration at feeling that he is often seen as 'a junkie' because of his being on opiates, also frustration with constant nausea/abdominal
pain and not having any clear answers. Was briefly tearful when talking about this. Denies depression outside of depressed mood relating to worsened quality of life, though on exploration he does describe struggling quite a bit. He denies SI, is
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
He is not open to taking any psychotropics at this time & ntes that he is currently in CBT which he has found quite helpful.
He does struggle with sleep due to nausea/abdominal pain however for this too, he was not open to trialing any different medications.
Discussed with pt that if he changes his mind and becomes more amenable to medication trials he can speak to us again (though he was quite clear that he wants to avoid psychotropics due to plans to return to piloting one day)
[2024-01-31 23:14] VITALS: BP 128/75
[2024-02-01] MEDS: TIGAN 200 MG IM ×2 (00:57→08:20)
[2024-02-01] MEDS: DILAUDID 1 MG IV ×4 (01:00→12:37)
[2024-02-01] MEDS: D5LR 1000 IV (04:36)
[2024-02-01] MEDS: ATIVAN 1 MG IV ×2 (05:31→11:28)
[2024-02-01] MEDS: NSS (PRESERVATIVE FREE) 0.5 ML IV ×2 (05:32→11:27)
[2024-02-01 06:43] LABS: Hematocrit 37.9 % (39.0-52.0); Hemoglobin 13.2 g/dL (13.0-18.0); Mean Corp Hgb Conc. 34.8 g/dL (33.0-37.0); Mean Corpuscular Hgb 29.7 pg (27.0-31.0); Mean Corpuscular Volume 85.4 fL (80.0-94.0); Mean Platelet Volume 9.8 fL (7.4-10.4); Platelet Count 257 10^3/uL (130-400); Red Blood Cell Count 4.44 10^6/uL (4.70-6.10); Red Cell Dist. Width 13.2 % (11.5-14.5); White Blood Cell Count 5.9 10^3/uL (4.8-10.8)
[2024-02-01 07:11] LABS: ALT (SGPT) 57 U/L (0-50); AST (SGOT) 49 U/L (17-59); Albumin 4.1 g/dl (3.5-5.0); Alkaline Phosphatase 66 U/L (38-126); Blood Urea Nitrogen < 2 mg/dl (9-20); Calcium 9.4 mg/dl (8.4-10.2); Carbon Dioxide 27 mmol/L (22-30); Chloride 103 mmol/L (98-107); Estimated Creatinine Clearance > 125 ml/min; Glucose 98 mg/dl (70-99); Magnesium 1.9 mg/dl (1.6-2.3); Potassium 3.5 mmol/L (3.5-5.1); Sodium 140 mmol/L (135-145); Total Bilirubin 1.3 mg/dl (0.2-1.3); Total Protein 6.7 g/dl (6.3-8.2); eGFR > 60.00
[2024-02-01 07:50] VITALS: BP 156/84
[2024-02-01] MEDS: PROTONIX IV 40 MG IV (08:19)
[2024-02-01] MEDS: NSS (PRESERVATIVE FREE) 10 ML IV (08:19)
[2024-02-01] MEDS: AMITIZA 24 MCG PO (08:19)
--- NOTE | 2024-02-01 11:28 | CM ---
Reviewed the chart notes. Patient is for discharge today to home with no additional needs being identified at this time. Patient's family will provide transportation home. CM continues to be available to patient/family and is monitoring medical
plan for needs at discharge.
Plan: Discharge to home today.
--- NOTE | 2024-02-01 12:55 | W.PN.HOSP.TC ---
Addendum entered and electronically signed by Sushant Lyles MD 02/01/24 17:01:
#GIL - most likely 2/2 to diarrhea/vomiting - resolved
#Hypokalemia
Addendum entered and electronically signed by Sushant Lyles MD 02/01/24 16:35:
[id number]
Original Note:
Today's Communication/Plan
-
change back to home meds
close Pain Management F/u in 1-2 weeks for potential and hopeful intrathecal pump
f/u gi, pcp, pain management outpatient
Assessment / Plan
Assessment / Plan
Mr. Jose Alejandro is a 23 yo man with h chronic abdominal pain and nausea status post extensive GI evaluations, opioid dependence on methadone and Alprazolam presents to the ER with exacerbation of pain and frequent vomiting.�
ABDOMEN US
IMPRESSION:
Limited exam in the midline due to overlying bowel gas.
No acute process identified.
Chronic Abdominal Pain
Acute Exacerbation Abdominal pain
Nausea/vomiting
Diarrhea reported at home
Opiate Dependence
-patient has had extensive work-up here and at [place], [facility], [facility].� s/p EGD, colo, flex sig, capsule endoscopies, CT, motility work-up.� He has received lidocaine and steroid injection for possible nerve pain in abdominal wall without
improvement.� He was on chronic narcotics, weaned off but had AE from gabapentin and then placed on methadone.� Nausea was OK off pain meds. Marijuana stopped for 8 months without relief of symptoms so he resumed
-F/U labs, likely OK for transfer to [facility] ]
-appreciate GI consult
-advanced to low residue diet; diarrhea resolved
-symptoms most likely related to chronic medication use; Spoke to Dr. Doherty today; Has not been seen with his mother for the last 1-2 years; After discussion- best path would be intrathecal pump to wean off other oral pain regimen. Educated
patient on slow taper of all medications as this most likely contributing factor in all symptoms.
-Can f/u with pain management in 1-2 weeks; F/u GI - Dr. [facility] at [facility]
Anxiety, Alprazolam dependence
XanaX
Transaminitis
ruq sono neg
-trending down, most likely 2/2 to vomiting
-f/u outpatient lfts, GI
GERD
-ppi
DVT PPx lovenox subQ
FULL CODE
More than 30 minutes spent in discharge including
Final examination of the patient
Summarizing hospital stay
Instructions for continuing care to all relevant caregivers
Preparation of discharge records, prescriptions, and referral forms
Total time spent (35 in minutes):
Anticipated Discharge: Today
Subjective/Interval History
-
Date of Service: February 01, 2024
had formed stool yesterday; tolerating diet; will dc - needs to go to Pain management outpatient
Objective Data
-
Labs:
Laboratory Results
02/01/24
06:11
WBC 5.9
Hgb 13.2
Hct 37.9 L
Plt Count 257
Sodium 140
Potassium 3.5
Chloride 103
Carbon Dioxide 27
BUN < 2 L
Creatinine 0.8
Glucose 98
Calcium 9.4
Total Bilirubin 1.3
AST 49
ALT 57 H
Alkaline Phosphatase 66
Vital Signs:
Vital Signs
Temp Pulse Resp BP Pulse Ox
98.5 F 67 20 156/84 99
02/01/24 07:50 02/01/24 07:50 02/01/24 07:50 02/01/24 07:50 02/01/24 11:41
I&O
01/31/24 02/01/24 02/02/24
06:59 06:59 06:59
Intake Total 0 / 2120 1520 / 1520
Output Total 1425 / 1425 1850 / 1850
Balance 695 / 695 -330 / -330
Review of Systems
-
History Source: Patient
All other systems: Reviewed and negative
Physical Exam
-
General: Other (mildly anxious, awake and alert, conversant )
HEENT: PERRLA
Respiratory: Clear to Auscultation; Negative Wheezes
Cardiac: Regular Rhythm and S1/S2
GI: Other (mildly tender mid-epigastric region, no rebound or guarding )
Musculoskeletal: No Edema
Skin: Warm and Dry; Negative Rash
Neuro: AO x 3
Psych: Calm
Data Reviewed
-
Ultrasound: Report Reviewed by me
Labs: Labs Reviewed by me
--- NOTE | 2024-02-01 13:01 | W.DS.TRANS ---
DC Summary - Bundle Wrapper
-
Discharge Instructions:
Discharge Diagnosis/Procedures
Chronic Abdominal Pain
Acute Exacerbation Abdominal pain
Nausea/vomiting
Diarrhea reported at home
Opiate Dependence
Diet Low Fiber
Activity As tolerated
Blood Work lfts in 1 week with pcp
Instructions:
Stand-Alone Forms:
Changes to Home Medications: No
Discharge Medications:
DC Medications w/original date entered in [facility]
alprazolam 1 mg tablet 1 mg PO QID Mental Health/Anxiety 09/15/23
lubiprostone 24 mcg capsule 24 mcg PO BID Constipation 09/15/23
methadone 10 mg tablet 10 mg PO QID chronic pain 09/15/23
ondansetron 8 mg disintegrating tablet 8 mg PO BID nausea 09/15/23
pantoprazole 40 mg tablet,delayed release 40 mg PO DAILY Gastrointestinal Issue 09/15/23
suvorexant 20 mg tablet (Belsomra) 20 mg PO HS insomnia 09/15/23
tizanidine 4 mg tablet 4 mg PO BID PRN muscle spasm 09/15/23
Home Medication Changes
no changes
Pending Results: No
[2024-02-01] MEDS: D5LR IV (14:02)
[2024-02-01 14:44] VITALS: BP 137/86
--- NOTE | 2024-02-01 14:49 | PN.CDI ---
CDI
- -
CDI:
Physician Documentation Request
Admit Date: 01/30/24 10:13
Dear Doctor Rafal,
Please review the following and provide your response in the progress notes.
Clinical Indicators:
Pt admitted with Acute Exacerbation Abdominal pain/Nausea/vomiting /Diarrhea reported at home
Renal functions are as below/Did get IVFs
01/30/24 01/31/24 02/01/24
03:58 07:23 06:11
Creatinine 1.3 0.8 0.8
Clarify which of the following accurately represents the patient's renal status:
GIL
Abnormal lab value only
Other
Criteria for GIL*
1 Increase in serum creatinine by > or = to 0.3 mg/dL (> or = to 26.5 micromol/L) within 48 hours, OR
2 Increase in serum creatinine to > or = to 1.5 times baseline, which is known or presumed to have occurred within 7 days, OR
3 Urine volume < 0.5 nL/kg/hour for six hours
Use of terms such as suspected, likely, concern for, or probable (associated with a specific diagnosis that is being evaluated, monitored, or treated as if it exists) are acceptable and can be coded in the inpatient setting, when documented at the
time of discharge.
Thank you,
Yasmeen Krueger RN
CDI Specialist
[place] [facility]
Please use your independent medical judgment in providing your response.
*Source: Kidney Disease: Improving Global Outcomes (KDIGO) 2012
--- NOTE | 2024-02-01 14:53 | PN.CDI ---
CDI
- -
CDI:
Physician Documentation Request
Admit Date: 01/30/24 10:13
Dear Doctor Rafal,
Please review the following and provide your response in the progress notes.
Clinical Indicators:
Pt admitted with Acute Exacerbation Abdominal pain/Nausea/vomiting /Diarrhea reported at home
Potassium level on 01/30 3.4 / Did get KCL 40 MEQ IV in 250 ml NS on 01/29 and 01/30
Based on the above, could you clarify in the progress notes, the appropriate diagnosis, if significant, that supports the above abnormalities and additional evaluation, monitoring and/or treatment rendered:
Hypokalemia
Abnormal lab value only
Other
Use of terms such as suspected, likely, concern for, or probable (associated with a specific diagnosis that is being evaluated, monitored, or treated as if it exists) are acceptable and can be coded in the inpatient setting, when documented at the
time of discharge.
Thank you,
Yasmeen Krueger RN
CDI Specialist
[place] [facility]
Please use your independent medical judgment in providing your response.
--- NOTE | 2024-02-01 15:09 | PTCARENOTE ---
Patient discharged home. This RN removed patient's IV and reviewed discharge instructions with patient and patient's mother; both verbalized understanding. Patient dressed and belongings gathered independently, patient refused wheelchair/staff
escort, ambulated with mother down to car.
== END 2024-02-01 15:09 | disposition home or self-care (01) | DRG 392 ==
LOC: 2 NORTH 10:13
PROVIDERS: ADMITTING PHYSICIAN Student in an Organized Health Care Education/Training Program; ATTENDING PHYSICIAN Internal Medicine; CONSULT PHYSICIAN Internal Medicine Gastroenterology; CONSULT PHYSICIAN Psychiatry & Neurology Psychiatry; EMERGENCY PHYSICIAN Emergency Medicine; FAMILY PHYSICIAN Internal Medicine
DX: R10.9 Unspecified abdominal pain (principal); F11.20 Opioid dependence, uncomplicated; N17.9 Acute kidney failure, unspecified; F41.9 Anxiety disorder, unspecified; K21.9 Gastro-esophageal reflux disease without esophagitis; E87.6 Hypokalemia
CPT/HCPCS: 76700; 80053; 80306; 80307; 81003; 82248; 83690; 83735; 85025; 85027; 93005; 96365; 96375; 96376; 99285

== ENCOUNTER → 2025-04-27 14:34 | Outpatient (REF) | payer OTHER, SELFPAY | LOC: RAD 14:34 | PROVIDERS: ATTENDING PHYSICIAN Internal Medicine | DX: R10.9 Unspecified abdominal pain (principal); I77.4 Celiac artery compression syndrome | CPT/HCPCS: 76700; 93975 ==